=== PATIENT | female | born 1980 | race African-American/Black ===

== ENCOUNTER 2018-05-15 09:47 | Emergency (ER) | payer BC, OTHER ==
[2018-05-15] MEDS ORDERED: Acetaminophen 500 MG TAB ONE ×2 (11:06→13:07)
[2018-05-15] MEDS ORDERED: Amlodipine 5 MG TAB ONE (11:06)
[2018-05-15 11:45] LABS: #Basophils 0.1 thou/uL (0.0-0.2); #Eosinphils 0.1 thou/uL (0.0-0.7); #Lymphocytes 1.2 thou/uL (1.20-3.40); #Monocytes 0.2 thou/uL (0.11-0.59); #Neutrophils 2.9 thou/uL (1.40-6.50); %Basophils 1.2 % (0.0-1.0); %Eosinophils 1.5 % (0.0-10.0); %Lymphocytes 26.8 % (21.0-51.0); %Monocytes 4.8 % (0.0-10.0); %Neutrophils 65.6 % (42.0-75.0); Hemoglobin 15.1 g/dL (12.0-16.0); Mean Corpuscular HGB CONC 33.3 g/dL (32.0-36.0); Mean Corpuscular Hemoglobin 31.1 pg (27.0-31.0); Mean Corpuscular Volume 93.5 fL (78.0-98.0); Mean Platelet Volume 7.8 fL (7.4-10.4); Platelet Count 138 thou/uL (130-400); RBC Distribution Width 11.7 % (11.5-14.5); Red Blood Cell (RBC) Count 4.85 mill/uL (4.20-5.40); White Blood Cell (WBC) Count 4.5 thou/uL (4.8-10.8)
[2018-05-15 12:17] LABS: ALT (SGPT) 11 U/L (8-55); AST (SGOT) 14 U/L (5-34); Alkaline Phosphatase 86 U/L (40-150); Anion Gap 9 mmol/L (10-20); BUN (Urea Nitrogen) 12 mg/dL (7.0-18.7); Bilirubin, Total 0.5 mg/dL (0.2-1.2); Calc. Creatinine Clearance 0 mL/min (70-130); Calcium 9.3 mg/dL (7.8-10.44); Carbon Dioxide 29 mmol/L (22-29); Chloride 107 mmol/L (98-107); Estimated GFR-MDRD 80; Globulin 3.5 g/dL (2.4-3.5); Glucose 106 mg/dL (70-105); Potassium 4.1 mmol/L (3.5-5.1); Protein, Total 7.5 g/dL (6.0-8.3); Sodium 141 mmol/L (136-145)
[2018-05-15 12:18] LABS: CKMB 1.6 ng/mL (0-6.6); Troponin I Less than 0.010 ng/mL (< 0.028)
[2018-05-15] MEDS ORDERED: Ondansetron ODT 8 MG TAB ONE (12:32)
--- NOTE | 2018-05-16 14:20 | EKG ---
Test Reason : Blood Pressure : / mmHG Vent. Rate : 051 BPM Atrial Rate : 051 BPM P-R Int : 134 ms QRS Dur : 074 ms QT Int : 462 ms P-R-T Axes : 034 -11 015 degrees QTc Int : 425 ms Sinus bradycardia Otherwise normal ECG Confirmed by CALEB CHEEK, JUANIS ([id number]), design editor HAILY JONAS ([id number]) on 05/16/2018 2:19:55 PM Referred By: Confirmed By:JUANIS ELLIS MD
== END 2018-05-15 14:36 | disposition home or self-care (01) ==
LOC: ERS 09:47
DX: I10 Essential (primary) hypertension (principal); Z79.899 Other long term (current) drug therapy; Z87.891 Personal history of nicotine dependence
CPT/HCPCS: 36415; 80053; 82553; 84484; 85025; 93005